=== PATIENT | male | born 1990 ===

== ENCOUNTER 2023-11-24 04:06 | Emergency (ER) | payer BC ==
[2023-11-24 04:40] LABS: BASOPHILS ABSOLUTE AUTO 0.06 K/uL (0.00-0.20); BASOPHILS PERCENT AUTO 0.7 % (0.0-1.0); EOSINOPHILS ABSOLUTE AUTO 0.24 K/uL (0.00-0.45); HEMATOCRIT 41.4 % (42.0-52.0); HEMOGLOBIN 14.5 g/dL (14.0-18.0); IMMATURE GRAN ABSOLUTE AUTO 0.01 K/uL (0.00-0.05); IMMATURE GRAN PERCENT AUTO 0.1 % (0.0-0.4); LYMPHOCYTES PERCENT AUTO 45.7 % (24.0-44.0); MEAN CORPUSCULAR VOLUME 85.5 fL (83.0-99.0); MEAN PLATELET VOLUME 9.8 fL (9.4-12.4); MONOCYTES ABSOLUTE AUTO 0.63 K/uL (0.00-0.80); MONOCYTES PERCENT AUTO 7.8 % (0.0-8.0); NEUTROPHILS ABSOLUTE AUTO 3.46 K/uL (1.80-7.70); NEUTROPHILS PERCENT AUTO 42.7 % (41.0-71.0); PLATELET COUNT,PLT 300 K/uL (150-400); RED BLOOD CELL COUNT 4.84 M/uL (4.52-5.90)
[2023-11-24] MEDS: Ondansetron 4 MG/2 ML SDV IVPUSH ONE (04:48)
[2023-11-24] MEDS: Sodium Chloride 0.9% 1,000 ML IV ONE (04:48)
[2023-11-24] MEDS: HYDROmorphone 1 MG/ML Syringe IVPUSH ONE (04:49)
[2023-11-24] MEDS: Sodium Chloride 0.9% 2.5 ML Syringe FLUSH PRN (04:49)
[2023-11-24] MEDS: Sodium Chloride 0.9% 10 ML Syringe FLUSH PRN (04:49)
[2023-11-24] MEDS: Ketorolac 30 MG/ML SDV IVPUSH ONE (04:49)
[2023-11-24 05:25] LABS: A/G RATIO 1.5 (0.9-1.6); ALBUMIN 4.3 g/dL (3.4-5.0); BILIRUBIN TOTAL 0.5 mg/dL (0.2-1.0); CARBON DIOXIDE,CO2 20.5 mmol/L (21.0-32.0); CREATININE 1.4 mg/dL (0.8-1.3); EST CRCL DRUG DOSING (CG) 78.94 mL/min; POTASSIUM,K 2.5 mmol/L (3.5-5.1); PROTEIN TOTAL,TP 7.1 g/dL (6.4-8.2)
[2023-11-24 06:13] LABS: CALCIUM 8.2 mg/dL (8.5-10.1); CARBON DIOXIDE,CO2 25.4 mmol/L (21.0-32.0); CREATININE 1.2 mg/dL (0.8-1.3); EST CRCL DRUG DOSING (CG) 92.09 mL/min; POTASSIUM,K 3.2 mmol/L (3.5-5.1)
[2023-11-24 06:36] LABS: APPEARANCE,URINE CLEAR; BILIRUBIN,URINE NEGATIVE (NEGATIVE); COLOR,URINE YELLOW; GLUCOSE,URINE NEGATIVE (NEGATIVE); KETONES,URINE 15 mg/dL (NEGATIVE); LEUKOCYTE ESTERASE,URINE NEGATIVE (NEGATIVE); NITRITE,URINE NEGATIVE (NEGATIVE); OCCULT BLOOD,URINE MODERATE (NEGATIVE); PH,URINE 6.5 (5.0-8.0); PROTEIN,URINE NEGATIVE (NEGATIVE); UROBILINOGEN,URINE 0.2 EU/dL (<2.0)
[2023-11-24] MEDS: Potassium Chloride 20 MEQ Tab.ER PO ONE (06:43)
[2023-11-24 06:56] LABS: BACTERIA,URINE FEW (NEGATIVE); EPITHELIAL CELLS,URINE RARE (NONE-FEW); WBC,URINE 0-1 (0-5/HPF)
[2023-11-24 07:11] LABS: C. TRACHOMATIS BY PCR NOT DETECTED; N. GONORRHOEAE BY PCR NOT DETECTED
== END 2023-11-24 07:20 | disposition home or self-care (01) ==
LOC: MW.ED 04:06
DX: N20.2 Calculus of kidney with calculus of ureter (principal)
CPT/HCPCS: 36415; 74176; 80048; 80053; 81001; 83690; 85025; 87491; 87591; 96361; 96374; 96375; 99284; A9270; J1170; J1885; J2405; J3490; J7030